=== PATIENT | female | born 1980 | race Caucasian/White ===

== ENCOUNTER 2016-12-02 17:27 | Emergency (ER) | payer BC ==
--- NOTE | ~2016-12-02 | CR110 ---
[facility] A Service of [facility] & [facility] RADIOLOGY TEXT RESULTS PATIENT: JENN LINCOLN LOCATION: SED : 84 UNIT #: [id number] AGE: [address]: Zuleika Dc APRN SEX: F ORDER DR: [id number] [address] [address] [id number] MR#: [id number] Acc #: [id number] NAME: JENN LINCOLN : 1980 SEX: F STUDY DATE/TIME: 12/02/2016 18:00 UNIT: SED ROOM: STUDY DESCRIPTION: CR Finger 2 View 3rd Lt Attending Physician: Zuleika Dc A.P.R.N. Ordering Physician: Zuleika Dc A.P.R.N. Primary Care Physician: Echo Berry A.P.R.N. MEDICAL IMAGING REPORT This report is preliminary unless electronic signature is present. EXAM Left finger series, 12/02/2016 HISTORY Trauma. Pain tip of finger, 35-pound weight fell on finger 1 hour prior to arrival. FINDINGS AP, lateral and oblique radiographs of the left third finger show no traumatic fracture or malalignment. The joint spaces are intact. There is mild generalized soft tissue swelling without soft tissue defect, subcutaneous air or radiodense foreign body. Remainder of visualized hand unremarkable. Dictated by... Kristian Bains M.D. THIS IS AN ELECTRONICALLY VERIFIED REPORT Kristian Bains M.D. at 12/03/2016 9:03 AM JD/vladimir TD: 12/02/2016 21:50 JOB #: [id number] MEDICAL IMAGING REPORT Page 1 of 1
[~2016-12-02 17:27] MED LIST: AUGMENTIN875 M1 PO; FLEXERIL10 MG PO; PREDNISONE PO; VOLTAREN50 MG PO
[2016-12-02] MEDS ORDERED: GRALISE1 EACH PO (17:29)
[2016-12-02] MEDS ORDERED: LEXAPRO PO (17:30)
== END 2016-12-02 18:26 | disposition home or self-care (01) ==
LOC: SED 17:27
DX: S67.193A Crushing injury of left middle finger, initial encounter (principal); W23.0XXA Caught, crushed, jammed, or pinched between moving objects, initial encounter; Y92.009 Unspecified place in unspecified non-institutional (private) residence as the place of occurrence of the external cause
CPT/HCPCS: 73140; 99283